=== PATIENT | male | born 1980 | race Caucasian/White ===

== ENCOUNTER 2021-04-22 17:41 | Emergency (ER) | payer OTHER ==
[~2021-04-22] VITALS: Ht 185.5 cm; Wt 183.7 kg
[2021-04-22 17:45] VITALS: BP 188/95
--- NOTE | 2021-04-22 18:07 | ED Chest Pain ---
General Chief Complaint: Upper Extremity Stated Complaint: CP Source: patient Exam Limitations: no limitations History of Present Illness Date Seen by Provider: Apr 22, 2021 Time Seen by Provider: 18:02 Initial Comments To ER with reports of right-sided chest wall pain. Is been ongoing for about a week. 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 He uses both arms to pull himself up into the truck but does not recall any particular injury that might of caused this. He denies any cough or shortness of breath. The pain is only brought about by movement of the right arm. There is no pain in the right shoulder or the right arm. 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: No NTG SL COVER MAKING MACHINE OPERATOR: No Allergies and Home Medications Allergies Coded Allergies: NSAIDS (Non-Steroidal Anti-Inflamma (Verified Allergy, Unknown, 04/22/21) Patient Home Medication List Home Medication List Reviewed: Yes Celecoxib (Celebrex) 200 Mg Capsule, 200 MG PO BID PRN for PAIN-MODERATE (5-7) Prescribed by: FE GIBSON on 04/22/211916 Review of Systems Review of Systems Constitutional: see HPI EENTM: No Symptoms Reported Respiratory: No Symptoms Reported Cardiovascular: No Symptoms Reported Gastrointestinal: See HPI, Abdominal Pain Genitourinary: No Symptoms Reported Musculoskeletal: no symptoms reported Skin: no symptoms reported Psychiatric/Neurological: No Symptoms Reported Endocrine: No Symptoms Reported Hematologic/Lymphatic: No Symptoms Reported Physical Exam Vital Signs Vital Signs - First Documented 04/22/21 17:45 Temp 36.9 Pulse 87 Resp 18 B/P (MAP) 188/95 (126) Pulse Ox 97 O2 Delivery Room Air Capillary Refill : Height, Weight, BMI Height: '" Weight: lbs. oz. kg; BMI Method: General Appearance: No Apparent Distress, WD/WN, Obese (Alert and oriented no distress hypertensive. Lungs are clear. The right anterior lower chest wall is quite tender to palpation as is the right sternal border up to just above the nipple line. The left side is slightly tender but not as bad as the right. He is not hypoxic or tachycardic.) Respiratory: No Accessory Muscle Use, No Respiratory Distress Cardiovascular: Regular Rate, Rhythm, Normal Peripheral Pulses Gastrointestinal: Normal Bowel Sounds, Non Tender, Soft Extremity: Normal Capillary Refill, Normal Inspection Neurologic/Psychiatric: Alert, Oriented x3 Skin: Normal Color, Warm/Dry; No Rash Progress/Results/Core Measures Results/Orders My Orders Orders - FE GIBSON APRN Chest Pa/Lat (2 View) (04/22/21 18:00) Ekg Tracing (04/22/21 19:11) Rx-Hydrocodone/Apap 5-325 Mg (Rx-Vicodin (04/22/21 19:30) Medications Given in ED Current Medications Medications Dose Ordered Sig/Wilber Route Start Time Stop Time Status Last Admin Dose Admin Acetaminophen/ Hydrocodone Bitart 1 ea Q4H PRN PO 04/22/21 19:30 04/22/21 19:29 1 EA Vital Signs/I&O 04/22/21 17:45 Temp 36.9 Pulse 87 Resp 18 B/P (MAP) 188/95 (126) Pulse Ox 97 O2 Delivery Room Air Departure Communication (Admissions) EKG shows sinus rhythm at [address] segment change. 193-he reports that he cannot have the hydrocodone we are going to send him home with because it has Tylenol in it. I discussed with him that Tylenol is not an NSAID but he informs me that he cannot have it either. He states he'd rather have tramadol even though "it doesnt do much" Impression Primary Impression: Chest wall pain Disposition: 01 HOME, SELF-CARE Condition: Stable Departure-Patient Inst. Decision time for Depature: 19:16 Referrals: SHANE PRICE MD (PCP/Family) Primary Care Physician Patient Instructions: Costochondritis Add. Discharge Instructions: 1. Medication as directed. Follow-up with Dr. Price later this week if you have any ongoing symptoms. Return ER for any worsening. All discharge instructions reviewed with patient and/or family. Voiced understanding. Scripts Celecoxib (Celebrex) 200 Mg Capsule 200 MG PO BID PRN for PAIN-MODERATE (5-7), #30 CAP 1 Refill Prov: FE GIBSON APRN 04/22/21 Images Torso/Trunk 1 - Tenderness 2 - Tenderness Copy Copies To 1: SHANE PRICE MD, PETER J APRN Apr 22, 2021 18:07
--- NOTE | 2021-04-22 18:21 | Diagnostic Imaging Report ---
INDICATION: Right chest wall pain. COMPARISON: None available. FINDINGS: The lungs appear clear without focal infiltrate or consolidation. There are no findings of an effusion. There is no evidence of a pneumothorax. Heart size and mediastinal contours appear appropriate. Is mild elevation the right hemidiaphragm. Pulmonary vascularity appears within normal limits. There is no acute or suspicious osseous abnormality demonstrated. Fracture evident. IMPRESSION: No radiographic evidence of an acute cardiopulmonary process. Dictated by: Dictated on workstation # [id number]
[2021-04-22] MEDS ORDERED: CELE200C PO (19:17)
== END 2021-04-22 19:48 | disposition home or self-care (01) ==
LOC: EDUNIT# 17:41 → ER 17:43
DX: R07.89 Other chest pain (principal); E66.9 Obesity, unspecified
CPT/HCPCS: 71046; 93005